=== PATIENT | female | born 1950 | race Caucasian/White ===

== ENCOUNTER 2025-10-26 18:00 | Emergency (ER) | payer OTHER ==
[~2025-10-26] VITALS: Ht 162.6 cm; Wt 79.4 kg
[2025-10-26] MEDS: IV NS 0.9% 500 ML BAG IV ONE (18:45)
[2025-10-26 19:04] LABS: PLATELET COUNT (AUTO) 282 K/uL (150-450); RED BLOOD CELL COUNT(AUTO) 3.89 MIL/uL (4.0-5.2); RED CELL DISTRIBUTION WIDTH 14.1 % (11.5-15.0); WHITE BLOOD COUNT (AUTO) 12.8 K/uL (4.3-11.0)
[2025-10-26 19:27] LABS: CALCIUM, SERUM 9.0 mg/dL (8.5-10.1); CREATININE 1.3 mg/dL (0.6-1.3); SODIUM SERUM 139 mmol/L (136-145); UREA NITROGEN, BLOOD 37 mg/dL (7-18)
[2025-10-26 21:01] LABS: APPEARANCE,URINE CLEAR (CLEAR); BLOOD, URINE 2+ Ery/uL (NEGATIVE); LEUKOCYTE ESTERASE ,URINE NEGATIVE (NEGATIVE); NITRITE, URINE NEGATIVE (NEGATIVE); UGLUCOSE NEGATIVE (NEGATIVE)
[2025-10-26 21:04] LABS: ADD URINE CULTURE NO; SQUAMOUS EPITHELIAL CELL,UR Few /HPF (None Seen)
[2025-10-26 21:40] VITALS: BP 132/76; TEMP 97.6; O2SAT 98
== END 2025-10-26 21:54 | disposition home or self-care (01) ==
LOC: ER 18:05
DX: I95.9 Hypotension, unspecified (principal); R55 Syncope and collapse; I10 Essential (primary) hypertension; R06.02 Shortness of breath; R10.20 Pelvic and perineal pain unspecified side
CPT/HCPCS: 99285; 71045; 93005; 85025; 80048; 87086; 81001; 36415; 84484 ×2; 83880; J7040